=== PATIENT | female | born 1980 | race Caucasian/White ===

== ENCOUNTER 2016-07-27 16:06 | Emergency (ER) | payer BC ==
[2016-07-27 19:21] VITALS: BP 135/78
[2016-07-27] MEDS ORDERED: NS 0.9% 1000 ML* 1,000 ML IV ONE (21:03)
[2016-07-27] MEDS ORDERED: Ketorolac INJ* 30 MG/ML 1 ML VIAL IV PUSH ONE (21:03)
[2016-07-27 22:17] LABS: Hematocrit 34 % (35-47); Hemoglobin 10.5 g/dl (12.0-16.0); Mean Corpuscular HGB Conc 31 g/dl (31-36); Mean Corpuscular Hemoglobin 20 pg (27-31); Mean Corpuscular Volume 66 fL (80-97); Mean Platelet Volume 8 um3 (7.4-10.4); Red Blood Count 5.24 10^6/ul (4.0-5.4); Red Cell Distribution Width 20 % (10.5-15); White Blood Count 7.2 10^3/ul (3.5-10.8)
[2016-07-27 22:30] LABS: Add Diff/Slide Review? Slide Review Added; Comments Flag Yes
[2016-07-27 22:59] LABS: Hypochromasia 1+; Macrocytosis 2+; Microcytosis 1+
[2016-07-27 23:00] LABS: Spherocytes 1+
--- NOTE | 2016-07-27 23:30 | ED ---
Headache - HPI Summary HPI Summary: 35 female presents with complaints of feeling lightheaded, dizzy and has a headache she can't get rid of the started approximately 2 days ago. Patient has been feeling lightheaded and dizzy for the past week. She is worried she is anemic. She has a history of anemia that has been worsening. She had an IUD removed about a week ago and states she has been bleeding a lot from it. She has been eating and drinking as much as she can, but has been "slacking". Denies chest pain, difficulty breathing, recent travel, bed rest, weakness, photophobia, vision changes and abdominal pain. Denies fever/chills. Took ibuprofen for headache with some relief that quickly wore off. She has not related to the lightheadedness to any specific position or movement. It is a constant feeling. Also complaints of her tongue feeling swollen. She has been taking iron pills, doubling her normal dose as she was told to by her PCP and OBGYN and eating an iron rich diet. - History Of Current Complaint Chief Complaint: EDDizziness Stated Complaint: HEADACHE Time Seen by Provider: 07/27/16 20:39 Hx Obtained From: Patient Hx Last Menstrual Period: bleeding now, "I always bleed". Onset/Duration: Gradual Onset, Started days ago, Still Present Initially Headache Was: Mild Currently Pain Is: Current Pain Scale(0-10)= - 6 Timing: Constant Character: Pressure, Typical Headache Location of Headache: Diffuse Aggravating Factor: Nothing Allevating Factors: Medication Associated Signs And Symptoms: Dizziness Related History: Similar Episode/DX As: - past diagnoses of anemia - Allergies/Home Medications Allergies/Adverse Reactions: Allergies Allergy/AdvReac Type Severity Reaction Status Date / Time Bee Venom Allergy Severe Anaphylatic Verified 03/08/16 08:07 Shock Prochlorperazine Allergy Intermediate See Comment Verified 03/08/16 08:07 [From Compazine] Neomycin [From Neosporin] Allergy Mild Rash Verified 03/08/16 08:07 Polymyxin B [From Neosporin] Allergy Mild Rash Verified 03/08/16 08:07 PMH/Surg Hx/FS Hx/Imm Hx Endocrine/Hematology History: Reports: Hx Diabetes - GESTATIONAL, Hx Anemia Cardiovascular History: Denies: Hx Congestive Heart Failure, Hx Hypertension, Hx Pacemaker/ICD Respiratory History: Reports: Hx Asthma History: Denies: Hx Renal Disease Musculoskeletal History: Reports: Other Musculoskeletal History - 18 YRS AGO FX OF NECK AND LOW BACK, OK NOW. 2013 FX LEFT FOOT Sensory History: Reports: Hx Contacts or Glasses - BOTH Denies: Hx Hearing Aid Opthamlomology History: Reports: Hx Contacts or Glasses - BOTH Psychiatric History: Denies: Hx Panic Disorder - Surgical History Surgery Procedure, Year, and Place: left ankle 08/2014 Hx Anesthesia Reactions: No - Immunization History Date of Tetanus Vaccine: PT STATES UNSURE Date of Influenza Vaccine: NONE Infectious Disease History: No Infectious Disease History: Denies: Traveled Outside the [place] in Last 30 Days - Family History Known Family History: Positive: Diabetes, Other - Cancer - Social History Alcohol Use: Rare Alcohol Amount: 2 DRINKS/MONTH Hx Substance Use: No Substance Use Type: Reports: None Hx Tobacco Use: Yes Smoking Status (MU): Never Smoked Tobacco Type: Cigarettes Amount Used/How Often: 1/2 PPD FOR 7 YRS Length of Time of Smoking/Using Tobacco: 10 YRS Have You Smoked in the Last Year: No Review of Systems Constitutional: Negative Eyes: Negative ENT: Negative Cardiovascular: Negative Respiratory: Negative Gastrointestinal: Negative Genitourinary: Negative Musculoskeletal: Negative Skin: Negative Positive: Headache - and lightheaded, dizzy Psychological: Normal All Other Systems Reviewed And Are Negative: Yes Physical Exam Triage Information Reviewed: Yes Vital Signs On Initial Exam: Initial Vitals Temp Pulse Resp BP Pulse Ox 98.2 F 80 16 132/97 100 07/27/16 16:22 07/27/16 16:22 07/27/16 16:22 07/27/16 16:22 07/27/16 16:22 Vital Signs Reviewed: Yes Appearance: Positive: Well-Appearing, No Pain Distress, Well-Nourished Skin: Positive: Warm, Skin Color Reflects Adequate Perfusion, Dry Head/Face: Positive: Normal Head/Face Inspection Eyes: Positive: Normal, EOMI, MAXIMILIAN, Conjunctiva Clear ENT: Positive: Normal ENT inspection, Hearing grossly normal, Pharynx normal, TMs normal. Negative: Pharyngeal erythema, Nasal congestion, Nasal drainage Dental: Positive: Other - tongue does not appear swollen and appears normal in texture and size. Negative: Percussion Tenderness @, Cervical Lymphadenopathy Neck: Positive: Supple, Nontender, No Lymphadenopathy. Negative: Nuchal Rigidity Respiratory/Lung Sounds: Positive: Clear to Auscultation, Breath Sounds Present Cardiovascular: Positive: Normal, RRR, Pulses are Symmetrical in both Upper and Lower Extremities Abdomen Description: Positive: Nontender, No Organomegaly, Soft Bowel Sounds: Positive: Present Musculoskeletal: Positive: Normal, Strength/ROM Intact Neurological: Positive: Normal, Sensory/Motor Intact, Alert, Oriented to Person Place, Time, CN Intact II-III, Reflexes Intact, NV Bundle Intact Distally, Normal Gait, Heel to Toe - normal, Finger to Nose - normal, Facial Symmetry, Speech Normal Psychiatric: Positive: Normal, Affect/Mood Appropriate - [place] Coma Scale Best Eye Response: 4 - Spontaneous Best Motor Response: 6 - Obeys Commands Best Verbal Response: 5 - Oriented Coma Scale Total: 15 Diagnostics - Vital Signs Vital Signs Temp Pulse Resp BP Pulse Ox 07/27/16 19:20 97.7 F 78 18 135/78 100 07/27/16 18:03 97.8 F 80 16 140/88 100 07/27/16 16:22 98.2 F 80 16 132/97 100 - Laboratory Lab Results: Lab Results 07/27/16 Range/Units 21:20 WBC 7.2 (3.5-10.8) 10^3/ul RBC 5.24 (4.0-5.4) 10^6/ul Hgb 10.5 L (12.0-16.0) g/dl Hct 34 L (35-47) % MCV 66 L (80-97) fL MCH 20 L (27-31) pg MCHC 31 (31-36) g/dl RDW 20 H (10.5-15) % Plt Count 242 (150-450) 10^3/ul MPV 8 (7.4-10.4) um3 Neut % (Auto) 50.1 (38-83) % Lymph % (Auto) 41.4 (25-47) % Mccone % (Auto) 6.1 (1-9) % Eos % (Auto) 1.9 (0-6) % Baso % (Auto) 0.5 (0-2) % Absolute Neuts (auto) 3.6 (1.5-7.7) 10^3/ul Absolute Lymphs (auto) 3.0 (1.0-4.8) 10^3/ul Absolute Monos (auto) 0.4 (0-0.8) 10^3/ul Absolute Eos (auto) 0.1 (0-0.6) 10^3/ul Absolute Basos (auto) 0 (0-0.2) 10^3/ul Absolute Nucleated RBC 0.01 10^3/ul Nucleated RBC % 0.1 Normal RBC Morphology Not Reportable Hypochromasia 1+ Microcytosis 1+ Macrocytosis 2+ Spherocytes 1+ Result Diagrams: 07/27/16 21:20 Lab Statement: Any lab studies that have been ordered have been reviewed, and results considered in the medical decision making process. Re-Evaluation - Re-Evaluation Second Eval Re-Evaluation Time: 22:20 Change: Improved - patient was feeling better have toradol and fluids, headache dissapated Headache Course/Dx - Course Course Of Treatment: fluids, toradol given and lab work obtained to check on anemia. normal labs. patient was encouraged to follow up with pcp and stated she has a hematolgy appotintment next week to discuss chronic anemia. aware of worsening signs and symptoms. drink plenty of fluids and continue doubling up on iron pills like instructed by pcp. - Diagnoses Differential Diagnosis/HQI/PQRI: Tension Headache, Viral Syndrome, Other Provider Diagnoses: Headache, Anemia, Lightheaded Discharge - Discharge Plan Condition: Stable Disposition: HOME Patient Education Materials: Iron Deficiency Anemia (ED) Referrals: Katja Clay MD [Primary Care Provider] - Additional Instructions: Continue taking your Iron pills as prescribed, two pills daily. Eat an iron rich diet like we discussed and drink plenty of fluids. Take some excedrin when/ if you develop another headache. It is important to follow up with your primary care provider and to try and move you hematology appointment up. Discuss your recent visit in the ED to help treat this chronic condition. If you develop worsening symptoms such as fainting, extreme weakness, lethargy, fever/chills, abnormal loss of blood please seek medical attention promptly.
== END 2016-07-27 23:48 | disposition home or self-care (01) ==
LOC: ED 16:06
DX: R42 Dizziness and giddiness (principal); R51 Headache; D64.9 Anemia, unspecified; Z87.891 Personal history of nicotine dependence; J45.909 Unspecified asthma, uncomplicated
CPT/HCPCS: 36415; 85025; 96360; 96374; 99281; J1885

== ENCOUNTER 2019-06-18 08:24 | Observation (INO) | payer BC ==
[~2019-06-18 08:24] MED LIST: Buffered Lidocaine 1% SYRIN* 1 ML/SYRINGE INTRADERM ONE; Dexamethasone IV* 4 MG/ML 1 ML (4 MG) IV SLOW PU ONE; Famotidine IV* 10 MG/ML 2 ML (20 mg) IV ONE; Lactated Ringers 1000 ML Bag* 1,000 ML IV SCH; Levalbuterol 0.63MG/3ML NEB* UNIT OF USE INH ONE
[2019-06-18] MEDS ORDERED: Dexamethasone IV* 4 MG/ML 1 ML (4 MG) ONE (08:41)
[2019-06-18] MEDS ORDERED: ceFAZolin 2 GM PREMIX in ORs 2 GM/50 ML BAG ONE ×2 (08:41→15:19)
[2019-06-18] MEDS ORDERED: Levalbuterol 0.63MG/3ML NEB* UNIT OF USE INH ONE (08:41)
[2019-06-18] MEDS ORDERED: Famotidine IV* 10 MG/ML 2 ML (20 mg) ONE (08:41)
[2019-06-18] MEDS ORDERED: Propofol* 10 MG/ML 20 ML BTL ONE (09:24)
[2019-06-18] MEDS ORDERED: Ondansetron INJ* 2 MG/ML VIAL ONE ×2 (09:24→15:16)
[2019-06-18] MEDS ORDERED: Midazolam* 1 MG/ML 5 ML VIAL (5 MG) ONE (09:24)
[2019-06-18] MEDS ORDERED: Atracurium* 10 MG/ML 10 ML VIAL ONE (09:24)
[2019-06-18] MEDS ORDERED: Ketorolac INJ* 30 MG/ML 1 ML VIAL ONE (09:24)
[2019-06-18] MEDS ORDERED: fentaNYL* 50 MCG/ML 5 ML VIAL (250 MCG VIAL) ONE ×2 (09:24→15:16)
[2019-06-18] MEDS ORDERED: EPHEDrine (Pressors)* 50 MG/ML VIAL ONE (09:24)
[2019-06-18] MEDS ORDERED: Lidocaine 2% PF * 5 ML VIAL ONE (09:25)
[2019-06-18] MEDS ORDERED: Bupivacaine 0.5% W/EPI SDV* 10 ML VIAL INJ ONE (10:18)
[2019-06-18] MEDS ORDERED: fentaNYL* 50 MCG/ML 2 ML VIAL (100 MCG VIAL) ONE ×2 (11:03→12:22)
[2019-06-18] MEDS ORDERED: Ondansetron INJ* 2 MG/ML VIAL IV PRN ×2 (11:29→14:58)
[2019-06-18] MEDS ORDERED: Naloxone* 0.4 MG/ML 1 ML VIAL IV PRN (11:29)
[2019-06-18] MEDS ORDERED: Scopolamine 1.5 mg* PATCH TRANSDERM PRN (11:29)
[2019-06-18] MEDS ORDERED: DiMENhydriNATE IV* 50 MG/ML VIAL IV PUSH PRN (11:29)
[2019-06-18] MEDS ORDERED: Rocuronium* 10 MG/ML VIAL ONE (13:26)
[2019-06-18] MEDS ORDERED: Sugammadex * 200 MG/2 ML VIAL IV PUSH ONE (13:29)
[2019-06-18] MEDS ORDERED: ceFAZolin 2 GM PREMIX in ORs 2 GM/50 ML BAG IVPB ONE (15:14)
[2019-06-18] MEDS: fentaNYL* 50 MCG/ML 2 ML VIAL (100 MCG VIAL) IV PRN ×5 (15:21→16:16)
[2019-06-18] MEDS ORDERED: oxyCODONE/Acetamin 5/325 MG* TAB ONE (16:01)
[2019-06-18] MEDS: oxyCODONE/Acetamin 5/325 MG* TAB PO PRN ×2 (16:03→22:17)
[2019-06-18] MEDS ORDERED: HYDROmorphone INJ1* 1 MG/ML SYRINGE ONE (16:25)
[2019-06-18] MEDS: HYDROmorphone INJ1* 1 MG/ML SYRINGE IV PRN ×5 (16:27→16:52)
[2019-06-18] MEDS: Lactated Ringers 1000 ML Bag* 1,000 ML IV SCH (18:12)
[2019-06-18] MEDS ORDERED: HYDROmorphone INJ1* 1 MG/ML SYRINGE IV SLOW PU PRN (18:19)
[2019-06-18] MEDS ORDERED: Albuterol HFA INHALER* 8 gm MDI INH PRN (18:20)
[2019-06-18] MEDS ORDERED: Ketorolac INJ* 30 MG/ML 1 ML VIAL IV PUSH ONE (18:30)
[2019-06-18 18:31] LABS: Urine Appearance Turbid; Urine Bilirubin Negative (Negative); Urine Blood 2+ (Negative); Urine Color Yellow; Urine Glucose Negative (Negative); Urine Ketones Trace (Negative); Urine Nitrite Negative (Negative); Urine Protein Negative (Negative); Urine Specific Gravity 1.032 (1.010-1.030); Urine Urobilinogen Negative (Negative)
[2019-06-18 18:37] LABS: Urine Bacteria Absent (Absent); Urine Red Blood Cell 3+(>10/hpf) (Absent); Urine White Blood Cell 1+(6-10/hpf) (Absent)
[2019-06-18] MEDS ORDERED: Metoclopramide IV* 5 MG/ML 2 ML VIAL IV PRN (19:45)
[2019-06-18] MEDS: diPHENhydraMINE IV* 50 MG/ML 1 ml VIAL (BENADRYL) SLOW PUSH PRN (22:18)
[2019-06-19] MEDS: Ibuprofen TAB* 600 MG PO PRN ×3 (01:24→21:01)
[2019-06-19] MEDS: Lactated Ringers 1000 ML Bag* 1,000 ML IV SCH ×2 (02:02→10:20)
[2019-06-19] MEDS: oxyCODONE/Acetamin 5/325 MG* TAB PO PRN ×5 (05:43→22:22)
[2019-06-19] MEDS: diPHENhydraMINE IV* 50 MG/ML 1 ml VIAL (BENADRYL) SLOW PUSH PRN ×2 (05:46→22:23)
[2019-06-19 06:05] LABS: ABS Lymphocytes 1.5 10^3/ul (1.0-4.8); ABS Monocytes 0.5 10^3/ul (0-0.8); ABS Neutrophils 4.7 10^3/ul (1.5-7.7); Eosinophil % 0.2 %; Hematocrit 34 % (35-47); Hemoglobin 11.7 g/dL (12.0-16.0); Lymphocyte % 22.7 %; Mean Corpuscular HGB Conc 34 g/dL (31-36); Mean Corpuscular Hemoglobin 28 pg (27-31); Mean Corpuscular Volume 83 fL (80-97); Nucleated Red Blood Cells % 0.2; Platelet Count 243 10^3/uL (150-450); Red Blood Count 4.15 10^6 /uL (3.70-4.87); Red Cell Distribution Width 14 % (10-15); White Blood Count 6.7 10^3/uL (3.5-10.8)
[2019-06-19 06:20] LABS: Albumin 3.6 g/dL (3.2-5.2); Calcium 8.4 mg/dL (8.6-10.3); Potassium 4.3 mmol/L (3.5-5.0); Total Bilirubin 0.5 mg/dL (0.2-1.0)
[2019-06-19 06:26] LABS: Albumin/Globulin Ratio 1.7 (1-3); BUN/Creatinine Ratio 13.8 (8-20); EGFR African American 124.1 (>60); EGFR Non-African American 102.6 (>60); Globulin 2.1 g/dL (2-4); Total Protein 5.7 g/dL (6.4-8.9)
--- NOTE | 2019-06-19 12:30 | PN ---
Progress Note - Progress Note Date of Service: 06/19/19 SOAP: Subjective: [Patient states she feels better than yesterday this am. She is tolerating a regular diet, ambulating, voiding without difficulty and taking PO meds for pain ] Objective: [ Vital Signs Temp Pulse Resp BP Pulse Ox 98.7 F 99 16 113/58 95 06/19/19 11:14 06/19/19 11:14 06/19/19 11:14 06/19/19 11:14 06/19/19 11:14 Laboratory Results - last 24 hr 06/18/19 06/19/19 06/19/19 18:12 05:25 05:55 WBC 6.7 RBC 4.15 Hgb 11.7 L Hct 34 L MCV 83 MCH 28 MCHC 34 RDW 14 Plt Count 243 MPV 8.0 Neut % (Auto) 69.7 Lymph % (Auto) 22.7 [place] % (Auto) 7.1 Eos % (Auto) 0.2 Baso % (Auto) 0.3 Absolute Neuts (auto) 4.7 Absolute Lymphs (auto) 1.5 Absolute Monos (auto) 0.5 Absolute Eos (auto) 0.0 Absolute Basos (auto) 0.0 Absolute Nucleated RBC 0.0 Nucleated RBC % 0.2 Sodium 136 Potassium 4.3 Chloride 104 Carbon Dioxide 27 Anion Gap 5 BUN 9 Creatinine 0.65 Est GFR ( Amer) 124.1 Est GFR (Non-Af Amer) 102.6 BUN/Creatinine Ratio 13.8 Glucose 107 H Calcium 8.4 L Total Bilirubin 0.50 AST 19 ALT 31 Alkaline Phosphatase 54 Total Protein 5.7 L Albumin 3.6 Globulin 2.1 Albumin/Globulin Ratio 1.7 Urine Color Yellow Urine Appearance Turbid Urine pH 5.0 Ur Specific [place] 1.032 H Urine Protein Negative Urine Ketones Trace A Urine Blood 2+ A Urine Nitrate Negative Urine Bilirubin Negative Urine Urobilinogen Negative Ur Leukocyte Esterase Negative Urine WBC (Auto) 1+(6-10/hpf) A Urine RBC (Auto) 3+(>10/hpf) A Urine Bacteria Absent Urine Glucose Negative Lungs CTA b/l, no CVA tenderness noted b/l. CV RRR Abdomen soft, not distended, Normal bowel sounds Incisions are clean/dry/intact with no discharge, erythema or induration noted.] Assessment: [POD#1 post :Laparoscopic lysis of adhesions and abdominal supracervical hysterectomy and b/l salpingectomy.] Plan: [Continue monitoring OOB and ambulate D/C IV]
[2019-06-19] MEDS: Simethicone TAB* 80 MG TAB.CHEW PO PRN ×2 (14:35→20:59)
[2019-06-19] MEDS: Docusate CAP* 100 MG PO PRN ×2 (14:35→21:01)
[2019-06-20] MEDS: oxyCODONE/Acetamin 5/325 MG* TAB PO PRN (03:35)
[2019-06-20] MEDS: Simethicone TAB* 80 MG TAB.CHEW PO PRN (03:40)
[2019-06-20] MEDS: diPHENhydraMINE IV* 50 MG/ML 1 ml VIAL (BENADRYL) SLOW PUSH PRN (05:04)
[2019-06-20 08:03] VITALS: BP 105/54
[2019-06-20] MEDS: Ibuprofen TAB* 600 MG PO PRN (08:06)
[2019-06-20] MEDS: Docusate CAP* 100 MG PO PRN (08:12)
--- NOTE | 2019-06-20 11:02 | PN ---
Progress Note - Progress Note Date of Service: 06/20/19 Note: S: Pt is a 38 y/o s/p Laparscopic SC Hysterectomy with mini-lap for specimen obtainment. Doing well. Up and out of bed ambulating, tolerating regular diet, voiding without difficulty. Passing flatus. O: AVSS, afebrile, hemodynamically stable CV: RRR Resp: CTABL Abd: soft, nd, nttp, no rebound, no guarding Incisions: c/d/i with bandages without shadowing, assessment of incisions under banage reveal sutures and steris, no drainage, erythema or bleeding Ext: warm, nttp, no edema A/P: 38 y/o s/p LSC SC Hysterectomy, doing well post operatively - AVSS, afebrile, hemodynamically stable - Passing flatus - Incisions - c/d/i, pt may remove bandages in shower, leave steris in place until post-op appointment, reviewed wound care with pt - Stable for discharge home - Pt reviewed with Dr. Cristo Harrison, who will be writing discharge summary and submitting his routine discharge materials and order DO CHRYSTAL Hernandez
--- NOTE | 2019-06-20 11:34 | OP ---
OPERATIVE REPORT: DATE OF OPERATION: 06/18/19 DATE OF : 82 SURGEON: Cristo Harrison MD. WRAPPER OPENER: Dr. Kain Betts. ANESTHESIA: General anesthetic with endotracheal intubation. PRE-OP DIAGNOSES: 1. Menorrhagia. 2. Abnormal uterine bleeding. 3. Chronic pelvic pain. 4. Severe dysmenorrhea. POST-OP DIAGNOSES: 1. Menorrhagia. 2. Abnormal uterine bleeding. 3. Chronic pelvic pain. 4. Severe dysmenorrhea. 5. Pending pathology. OPERATIVE PROCEDURE: Diagnostic laparoscopy with lysis of adhesions, and abdominal supracervical hys terectomy with bilateral salpingectomy. ESTIMATED BLOOD LOSS: Less than 100 cc. SPECIMEN SENT TO PATHOLOGY: Uterus and bilateral fallopian tubes. FLUIDS: She received 2100 cc of IV crystalloid fluid. URINE OUTPUT: 600 cc of clear urine. FINDINGS: Laparoscopically, the patient was noted to have dent abdominal to anterior uterine fundal serosa adhesions and dense adhesions of the bladder to the lower uterine segment and adhesions from t he omentum to the anterior abdominal wall just below the umbilicus. The fallopian tubes and ovaries were noted to be within normal limits bilaterally. There was normal bowel and there were no complica tions. The patient was also noted to have a stenotic cervical os. DESCRIPTION OF PROCEDURE: The patient was taken to the operating room where she was identified. She was placed on the operating room table where a general anesthetic with endotracheal intubation was o btained without difficulty. She was then placed in the dorsal lithotomy position, prepped and draped in a normal sterile fashion. Attention was then brought on to the patient's perineum where the blad sj was catheterized with a Ricks catheter and drained of clear urine. A side- view speculum was ins erted into the the patient's vagina. The cervix was identified, grasped with a single-tooth tenaculu m and through the cervix, an attempt was made to introduce an uterine manipulator. However, the cerv ix was noted to be stenotic despite attempts of dilating the cervix. Therefore, the uterine manipula tor was removed from the patient's vagina as well as single-tooth tenaculum and the speculum, and a s ponge stick was left in the vagina to manipulate the uterus from underneath. Attention was then brought on to the patient's abdomen where a vertical infraumbilical skin incision was made with a knife and carried through to the underlying layer of fascia. The fascia was then gra sped with Adrián clamps. It was then incised vertically with a knife. Entry through the peritoneum was confirmed using Danii clamp and S retractors. Through this incision, an Yanick single-site gel r etractor was introduced. The patient's abdomen was then insufflated with CO2 gas. Through the gel r etractor, a 30-degree 5 mm scope was introduced, taking the survey of the patient's pelvis and manager intern al abdominal anatomy was noted as above. Two other trocars were then inserted at the right and left upper quadrant of the patient's abdomen under direct visualization. We then proceeded to perform prachi is of adhesions by first removing adhesions from the omentum to the anterior abdominal wall using a L igaSure device with cautery and sharp dissection. Once the omentum was removed from the patient's an terior abdomen, we noticed that the omentum was also adherent to the anterior fundal aspect of the ut erus and fallopian tubes bilaterally. We then proceeded to remove these adhesions with a LigaSure de vice with coagulation and sharp dissection. The fallopian tubes were visualized bilaterally. They w ere noted to be within normal limits as well as the ovaries, and they were freed from internal omenta l adhesions. The bladder was noted to be densely adherent to the lower uterine segment. We then proc eeded to perform a salpingectomy laparoscopically. These were removed and sent to Pathology. The ro und ligaments were then grasped bilaterally with LigaSure. They were coagulated and transected as wel l as the utero-ovarian ligaments were coagulated and transected bilaterally with a LigaSure device. A window was then made in the anterior leaf of the broad ligament and was then dissected inferiorly u sing blunt and sharp dissection and cautery with the LigaSure device. We identified the uterine lin mercedes bilaterally. These were grasped with a LigaSure device and coagulated, and uterus was then note d to be blanching from decreasing blood flow supply by grasping the uterine arteries and coagulating them. An attempt was made to dissect the bladder away from the uterine segment; however, this was fruitless due to dense adhesions and I was unable to identify the borders of the bladder at the lower uterine segment, so at this point, the decision was made that it would have been too risky to attempt bladder dissection and therefore a mini laparotomy was performed to remove the uterus. All the laparoscopic instruments were removed from the patient's abdomen as well as CO2 gas, and the fascial incision on the umbilicus was closed with 0 Polysorb suture in a running fashion. The left and upper quadrant in cisions were closed with 4-0 Monocryl subcuticular stitch and umbilical incision was closed with a 4- 0 Monocryl subcuticular stitch as well. We removed the sponge stick from the patient's vagina. We t hen proceeded with laparotomy. A Pfannenstiel skin incision was made with a knife and carried through to the underlying layer of fas ernesto. The fascia was nicked in the midline extended laterally with curved Golden scissors. The fascia was then grasped superiorly and inferiorly with Adrián clamps and dissected off sharply from the rect us muscle. The rectus muscle was then in the midline bluntly. The peritoneum was identifie d, grasped with pick-ups, and entered sharply and inferiorly and posteriorly sharply. The patient was then placed in a deep Trendelenburg position. An Yanick retractor was introduced into the patient's abdomen. We were able to grasp the uterus and it was brought out through the incision. M oist laparotomy sponges were then used to pack the bowel away from the patient's pelvis. We were abl e to then dissect the bladder inferiorly away from the lower uterine segment and the uterus was then decapitated from the cervix using a cautery. The uterus was then sent to Pathology. The cervix was hemostatic. An 0 Polysorb suture was then placed in a running locked fashion to approximate the sero mariel layers of the cervix. This was done with good hemostasis noted. The patient's abdomen was then i rrigated with normal saline. The saline solution was then suctioned. All the surgical pedicles were then noted to be completely hemostatic. All the instruments and sponges were removed from the patie nt's abdomen. Sponge count and instrument count were correct x1. I then proceeded to close the alisa toneum with a 3-0 Polysorb suture in a running fashion. The fascia was closed in a running locked fa shion. The Ryan's layer was closed with 3-0 interrupted Polysorb sutures, and the skin was closed w ith a 4-0 Monocryl subcuticular stitch. The patient tolerated the procedure well. Sponge, lap, and needle counts were correct x 2. She was then transferred to the recovery room area in stable conditi on. [id number]/[facility] #: [id number]
--- NOTE | 2019-06-23 18:59 | DS ---
DISCHARGE SUMMARY: DATE OF ADMISSION: 06/18/19 DATE OF DISCHARGE: 06/20/19 ADMISSION DIAGNOSES: 1. Menorrhagia. 2. Abnormal uterine bleeding. 3. Chronic pelvic pain. 4. Severe dysmenorrhea. PROCEDURE ON ADMISSION: Laparoscopy with lysis of adhesions with an abdominal supracervical hysterectomy and bilateral salpingectomy. CONDITION AT DISCHARGE: Stable. DISPOSITION: The patient was discharged to home. HOSPITAL COURSE: The patient was scheduled for laparoscopic supracervical hysterectomy and bilateral salpingectomy for treatment of abnormal uterine bleeding, chronic pelvic pain and severe dysmenorrhea. Due to severe adhesions during her procedure. She underwent a laparoscopic lysis of adhesions and abdominal supracervical hysterectomy with bilateral salpingectomy. This surgery was uneventful without complications. After the surgery she was transferred to the recovery room area where she recovered well. She was then admitted to surgical stay unit under observation. The patient's vital signs throughout her stay remained stable. On postop day #2, she was tolerating a regular diet, passing flatus, ambulating and voiding without difficulty. She was also taking oral medications for analgesia and therefore decision was made to discharge the patient to home. She was scheduled to have a follow up appointment at my office 1 week after the procedure. Please refer to the patient's discharge packet for a full explanation of discharge instructions. [id number]/[facility] #: [id number] CHRISTINA
== END 2019-06-20 10:45 | disposition home or self-care (01) ==
LOC: OR 08:24 → SSU 14:58
PROVIDERS: ADMIT Obstetrics & Gynecology; ATTEND Obstetrics & Gynecology
DX: N92.1 Excessive and frequent menstruation with irregular cycle (principal); N94.6 Dysmenorrhea, unspecified; N93.9 Abnormal uterine and vaginal bleeding, unspecified; G89.29 Other chronic pain; R10.2 Pelvic and perineal pain; Z88.8 Allergy status to other drugs, medicaments and biological substances; D64.9 Anemia, unspecified; Z87.891 Personal history of nicotine dependence
CPT/HCPCS: 36415; 80053; 81003; 81015; 85025; 87086; 88307; 96361; 96374; 96375; 96376; A9270-GY; G0378; J0690; J1100; J1170; J1200; J1885; J2250; J2405; J2704; J3010

== ENCOUNTER 2021-11-23 02:24 | Observation (INO) ==
[2021-11-23] MEDS: Albuterol/Ipratropium NEB.SOL (2.5/0.5 MG) 3 ML NEB.SOLN INH PRN ×5 (02:46→20:35)
[2021-11-23 02:53] LABS: ABS Lymphocytes 2.8 10^3/ul (1.0-4.8); ABS Monocytes 0.5 10^3/ul (0-0.8); ABS Neutrophils 4.9 10^3/ul (1.5-7.7); Hematocrit 45 % (35-47); Lymphocyte % 34.2 %; Mean Corpuscular HGB Conc 34 g/dL (31-36); Mean Corpuscular Hemoglobin 29 pg (27-31); Mean Corpuscular Volume 86 fL (80-97); Mean Platelet Volume 7.8 fL (7.4-10.4); Nucleated Red Blood Cells % 0.1; Platelet Count 279 10^3/uL (150-450); Red Blood Count 5.22 10^6 /uL (3.70-4.87); Red Cell Distribution Width 15 % (10-15); White Blood Count 8.3 10^3/uL (3.5-10.8)
[2021-11-23] MEDS ORDERED: methylPREDNISolone SOD SUCC 125 mg 2 ML VIAL IV ONE (03:04)
[2021-11-23] MEDS ORDERED: EPINEPHrine Anaphylaxis SYR CERTADOSE SYR KIT IM ONE (03:31)
[2021-11-23 03:41] LABS: Albumin 4.6 g/dL (3.2-5.2); Albumin/Globulin Ratio 1.6 (1-3); C Reactive Protein 6.49 mg/L (<8.01); Calcium 9.7 mg/dL (8.6-10.3); Globulin 2.8 g/dL (2-4); Potassium 3.7 mmol/L (3.5-5.0); Total Bilirubin 0.5 mg/dL (0.2-1.0); Total Protein 7.4 g/dL (6.4-8.9); eGFR CKD-EPI 113.1 (>60)
[2021-11-23] MEDS ORDERED: Albuterol 0.5% CONC CONTINUOUS NEB.SOL 5 mg/ml 20 ml BOT INH ONE ×2 (04:36→05:59)
[2021-11-23] MEDS ORDERED: Magnesium Sulfate 2 gm BAG 2 GM/50 ML BAG IVPB ONE (04:37)
[2021-11-23] MEDS ORDERED: Ondansetron 4 mg VIAL 2 MG/ML 2 ml VIAL IV PRN (05:39)
[2021-11-23] MEDS ORDERED: Albuterol HFA INHALER 8 gm MDI INH PRN (05:48)
[2021-11-23] MEDS ORDERED: Azithromycin 500 mg/250 mL NS IVPB ONE (06:00)
[2021-11-23] MEDS ORDERED: cefTRIAXone 1 gm/50 mL D5W 1 GM/50 ML BAG IV ONE (06:00)
[2021-11-23] MEDS: guaiFENesin/CODIENE 100mg/10mg 5 ML UDC PO PRN ×3 (06:04→19:39)
[2021-11-23] MEDS: DULoxetine DR 60 mg CAP PO SCH (10:47)
[2021-11-23] MEDS: methylPREDNISolone SOD SUCC 40 mg/ml 1 ml VIAL IV SCH ×2 (10:48→19:44)
[2021-11-23 13:22] LABS: High Sensitivity Troponin 1 Hr 5 pg/mL (<15)
[2021-11-24] MEDS: guaiFENesin/CODIENE 100mg/10mg 5 ML UDC PO PRN ×2 (03:16→08:41)
[2021-11-24] MEDS: methylPREDNISolone SOD SUCC 40 mg/ml 1 ml VIAL IV SCH (03:16)
[2021-11-24] MEDS: Albuterol/Ipratropium NEB.SOL (2.5/0.5 MG) 3 ML NEB.SOLN INH PRN ×2 (05:24→14:51)
[2021-11-24] MEDS ORDERED: cefTRIAXone 1 gm/50 mL D5W 1 GM/50 ML BAG IV SCH (06:00)
[2021-11-24] MEDS ORDERED: Azithromycin 500 mg/250 ml NS 500 MG/250 ML BAG IVPB SCH (07:00)
[2021-11-24] MEDS: DULoxetine DR 60 mg CAP PO SCH (08:41)
[2021-11-24] MEDS ORDERED: Fluticasone NASAL SPRAY 50MCG 16 gm SPRAY BTL BOTH NARES SCH (09:00)
[2021-11-24 10:47] VITALS: BP 145/82
[2021-11-24] MEDS ORDERED: Mometasone/Formoter 100/5 MDI INH SCH (19:00)
== END 2021-11-24 16:08 | disposition home or self-care (01) ==
LOC: EDHOLD 02:24 → ED 02:24 → EDHOLD 07:32 → MED 08:57
PROVIDERS: ADMIT Internal Medicine; ATTEND Internal Medicine